=== PATIENT | female | born 1975 | race Caucasian/White ===

== ENCOUNTER 2018-04-11 20:40 | Emergency (ER) | payer OTHER ==
[~2018-04-11] VITALS: Ht 162.6 cm; Wt 79.8 kg
[2018-04-11 21:17] VITALS: Ht 162.6 cm; Wt 79.8 kg
[2018-04-12 00:39] VITALS: BP 94/64
== END 2018-04-12 00:39 | disposition home or self-care (01) ==
LOC: ED 20:40
DX: S09.90XA Unspecified injury of head, initial encounter (principal); G10 Huntington's disease; W22.8XXA Striking against or struck by other objects, initial encounter; Y93.89 Activity, other specified; Y92.89 Other specified places as the place of occurrence of the external cause; Y99.8 Other external cause status

== ENCOUNTER 2018-05-16 18:15 | Emergency (ER) | payer OTHER ==
[~2018-05-16] VITALS: Ht 162.6 cm; Wt 83.9 kg
[2018-05-16 18:28] VITALS: Ht 162.6 cm; Wt 83.9 kg
[2018-05-16 21:07] VITALS: BP 111/80
== END 2018-05-16 21:07 | disposition home or self-care (01) ==
LOC: ED 18:15
DX: S63.247A Subluxation of distal interphalangeal joint of left little finger, initial encounter (principal); W01.190A Fall on same level from slipping, tripping and stumbling with subsequent striking against furniture, initial encounter; Y93.89 Activity, other specified; Y92.89 Other specified places as the place of occurrence of the external cause; Y99.8 Other external cause status; S63.246A Subluxation of distal interphalangeal joint of right little finger, initial encounter

== ENCOUNTER 2018-08-07 16:12 | Inpatient (IN) | payer OTHER ==
[~2018-08-07] VITALS: Ht 165.1 cm; Wt 82.2 kg
[2018-08-07 16:20] VITALS: Ht 165.1 cm; Wt 82.2 kg
[2018-08-07 18:31] LABS: BASOPHIL % 0.8 % (0-2); PLATELET COUNT 331 x10^3mcL (130-400)
[2018-08-07 18:33] LABS: RED CELL DISTRIBUTION WIDTH 19.3 % (11.5-14.5)
[2018-08-07 18:55] LABS: CALCIUM 8.3 mg/dL (8.5-10.1); CARBON DIOXIDE 27.4 mmol/L (21-32); CHLORIDE SERUM 105 mmol/L (98-107); CREATININE SERUM 0.6 mg/dL (0.6-1.0); GFR1 > 60 mL/min; GLUCOSE SERUM 89 mg/dL (74-106); POTASSIUM SERUM 4.2 mmol/L (3.5-5.1); SODIUM SERUM 141 mmol/L (136-145)
[2018-08-07 19:00] LABS: ALBUMIN 3.6 g/dL (3.4-5.0); ALKALINE PHOSPHATASE 63 U/L (46-116); ALT/SGPT 14 U/L (14-59); AST/SGOT 11 U/L (15-37); BILIRUBIN TOTAL 0.27 mg/dL (0.20-1.00); LIPASE 99 IU/L (73-393); TOTAL PROTEIN, SERUM 7.1 g/dL (6.4-8.2)
[2018-08-07 19:34] LABS: microscopic required? YES; urine erythrocyte NEGATIVE (NEGATIVE)
[2018-08-07] MEDS ORDERED: RISPERDAL0.5 MG PO (22:45)
[2018-08-07] MEDS ORDERED: ZOL100 PO (22:46)
[2018-08-07 23:26] VITALS: BP 96/58
[2018-08-08 02:42] LABS: T3 TOTAL 0.88 ng/mL
[2018-08-08 03:01] LABS: FREE T4 1.08 ng/dL (0.76-1.46); FREE THYROXINE INDEX 1.4 ug/dL (1.4-4.5); T4(THYROXINE) 4.8 ug/dL (4.7-13.3)
[2018-08-08 04:07] LABS: CHOLESTEROL/HDL RATIO 2.9; PHOSPHOROUS 3.8 mg/dL (2.5-4.9)
[2018-08-08 05:32] VITALS: BP 97/56
[2018-08-08 07:30] VITALS: BP 98/57
[2018-08-08 08:12] LABS: BASOPHIL % 0.9 % (0-2); PLATELET COUNT 279 x10^3mcL (130-400)
[2018-08-08 08:13] LABS: CALCIUM 7.9 mg/dL (8.5-10.1); CARBON DIOXIDE 26.4 mmol/L (21-32); CHLORIDE SERUM 108 mmol/L (98-107); CREATININE SERUM 0.6 mg/dL (0.6-1.0); GFR1 > 60 mL/min; GLUCOSE SERUM 84 mg/dL (74-106); POTASSIUM SERUM 3.6 mmol/L (3.5-5.1); SODIUM SERUM 141 mmol/L (136-145)
[2018-08-08 08:19] LABS: RED CELL DISTRIBUTION WIDTH 19.2 % (11.5-14.5)
[2018-08-08 08:21] LABS: rbc morphology (normal/abnorm) ABNORMAL (NORMAL)
[2018-08-08 10:54] LABS: AMPHETAMINE QUAL UR NONE DETECTED (See below)
[2018-08-08 12:17] VITALS: BP 124/37; BP 92/54
[2018-08-08] MEDS ORDERED: MAC100 PO (12:19)
[2018-08-08 13:00] VITALS: BP 98/57
== END 2018-08-08 15:20 | disposition home or self-care (01) | DRG 760 ==
LOC: ED 16:12 → DU 22:21
PROVIDERS: Emergency Medicine; Internal Medicine
DX: N83.201 Unspecified ovarian cyst, right side (principal); N39.0 Urinary tract infection, site not specified; G10 Huntington's disease; F32.9 Major depressive disorder, single episode, unspecified; D25.9 Leiomyoma of uterus, unspecified; Z68.27 Body mass index [BMI] 27.0-27.9, adult
CPT/HCPCS: 83880; 84439; 90658; J0696; J1885; J2060; J2270; J2405; J7030; Q0092